=== PATIENT | male | born 1975 | race Caucasian/White ===

== ENCOUNTER → 2022-09-07 15:21 | Outpatient (BNVA) | payer OTHER, SELFPAY | PROVIDERS: Visit Provider Orthopaedic Surgery | DX: M25.562 Pain in left knee (principal) | CPT/HCPCS: 99203 ==

== ENCOUNTER 2022-09-24 15:07 | Outpatient (CLI) | payer OTHER, SELFPAY ==
--- NOTE | 2022-09-24 15:15 | MR_ITS ---
WS: [id number] MRI LEFT KNEE HISTORY: pain COMPARISON: Radiograph 08/19/2022 Anterior cruciate ligament: Intact. Posterior cruciate ligament: Intact. Medial collateral ligament: Intact. Posterior lateral corner structures: Intact. Medial menisci: Focal blunting involving the free edge posterior horn consistent with a focal tear. T his is probably a radial tear. There is additional signal in the peripheral third of the posterior me niscus. Favor this could be an additional tear extending along the posterior inferior surface of the meniscus to the fascicle. Anterior horn is normal. Lateral meniscus: Intact. Normal signal, size and shape. Extensor mechanism: Distal quadriceps tendon and patellar tendons are intact. Fluid and soft tissue: Small suprapatellar joint effusion. There is a small Deluna's cyst. Small amoun t of edema along the medial head of the gastrocnemius. There is mild edema surrounding the knee. Osseous and articular structures: Patellofemoral compartment: Mild thinning of the cartilage. No full-thickness cartilage defects and n o marrow edema. Medial compartment: Moderate narrowing of the medial compartment. Thinning of the cartilage along the weightbearing surface of the femoral condyle and tibial plateau. There is a very small amount of nancy ctive marrow edema tibial plateau. Lateral compartment: Mild narrowing. Very minimal fissuring of the cartilage. No marrow edema. MR/MR knee LT wo con* [id number] IMPRESSION: 1. Focal blunting posterior horn medial meniscus involving the free edge. Susp icious for tear. 2. Additional signal abnormality in the peripheral third posterior horn medial meniscus. Abnormal signal extends along the posterior inferior meniscus to the fascicle. 3. Small Deluna's cyst and small joint effusion. 4. Moderate medial compartment with thinning and fissuring of cartilage. 5. Very small amount of marrow edema involving the medial tibial plateau.
== END 2022-09-24 15:08 | disposition home or self-care (01) ==
PROVIDERS: PCP Orthopaedic Surgery; Visit Provider Orthopaedic Surgery
DX: M23.322 Other meniscus derangements, posterior horn of medial meniscus, left knee (principal); M71.22 Synovial cyst of popliteal space [Baker], left knee; M25.462 Effusion, left knee; M94.9 Disorder of cartilage, unspecified
CPT/HCPCS: 73721

== ENCOUNTER → 2022-10-04 10:37 | Outpatient (BNVA) | payer OTHER, SELFPAY | PROVIDERS: PCP Orthopaedic Surgery; Visit Provider Specialist | DX: S89.92XA Unspecified injury of left lower leg, initial encounter (principal); X58.XXXA Exposure to other specified factors, initial encounter | CPT/HCPCS: 73560; 73565; 99204 ==

== ENCOUNTER 2022-10-26 13:38 | Outpatient (CLI) | payer OTHER, SELFPAY ==
--- NOTE | 2022-10-26 13:43 | MR_ITS ---
WS: [id number] MRI LEFT KNEE NONCONTRAST TECHNIQUE: Axial PD, coronal PD fat sat, sagittal T1 and sagittal PD ACL images. Post intra-articular gadolinium images with fat saturation technique CLINICAL INFORMATION: knee injury COMPARISON: MRI September 24, 2022 FINDINGS: Distal quadriceps and patella tendons are intact. Hypertrophic patella. Normal ACL and PCL. Tiny amou nt of edema in the medial tibial plateau unchanged from previous. Normal medial and lateral collatera l ligaments. Normal popliteus. Moderate chondromalacia involving the medial joint compartment. Mild p eripheral extrusion of the medial meniscus. Again seen is the small undersurface tear involving the posterior horn medial meniscus with a tiny te ar extending to the articular surface. Small amount of peripheral meniscal herniation about the tibia l plateau. Normal lateral meniscus. Moderate chondromalacia patella. Normal medial and lateral patellar retinaculum. Small Lobulated popl iteal cyst measuring 2.9 x 1.4 x 6.0 cm AP by transverse by craniocaudal MR/MR knee LT wo/w con [id number] IMPRESSION: 1. Normal ACL and PCL. 2. Small tear involving the posterior horn medial meniscus extending to the ar ticular surface with peripheral meniscal herniation with slight inferior migrat ion. 3. Moderate chondromalacia patella. 4. Moderate chondromalacia involving the medial joint compartment with small a mount of edema involving the medial tibial plateau. 5. Small lobulated popliteal cyst as described above. Outbridge grading:
--- NOTE | 2022-10-26 13:45 | IR_ITS ---
WS: [id number] LEFT KNEE ARTHROGRAM Fluoroscopic guided left knee arthrogram. CLINICAL INFORMATION: knee injury COMPARISON: None. TECHNIQUE: The procedure including risks, benefits, and complications were discussed with the patient , who agreed to proceed. Timeout was performed. Using sterile technique, the patient was prepped and draped in the usual sterile fashion. After 1% lidocaine injection using fluoroscopic guidance, a 22-g auge spinal needle was advanced into the left patellofemoral compartment. Subsequently 40 cc of a mix ture containing 30 cc normal saline, 10 cc Omnipaque 240, and 0.2 cc gadolinium was administered. No immediate complications. FLUOROSCOPY TIME: 1min [id number] # of spot films: 2 IR/[place] [id number] IMPRESSION: Uncomplicated left knee fluoroscopic guided arthrogram. MRI to follow.
== END 2022-10-26 13:39 | disposition home or self-care (01) ==
PROVIDERS: PCP Emergency Medicine Emergency Medical Services; Visit Provider Specialist
DX: S83.242A Other tear of medial meniscus, current injury, left knee, initial encounter (principal); X58.XXXA Exposure to other specified factors, initial encounter; M22.42 Chondromalacia patellae, left knee
CPT/HCPCS: 27369; 73723; 77002

== ENCOUNTER → 2022-11-10 14:54 | Outpatient (BNVA) | payer OTHER, SELFPAY | PROVIDERS: PCP Emergency Medicine Emergency Medical Services; Referring Provider Emergency Medicine Emergency Medical Services; Visit Provider Specialist | DX: M25.521 Pain in right elbow (principal); M25.522 Pain in left elbow; M25.562 Pain in left knee | CPT/HCPCS: 73080; 99214 ==

== ENCOUNTER 2022-11-16 15:31 | Outpatient (RCR) | payer OTHER, SELFPAY | END 2022-11-25 23:59 | disposition home or self-care (01) | LOC: SOT 15:31 | PROVIDERS: PCP Emergency Medicine Emergency Medical Services; Visit Provider Specialist | DX: M25.529 Pain in unspecified elbow (principal) | CPT/HCPCS: 97110; 97165; 97530 ==

== ENCOUNTER 2022-11-19 11:27 | Outpatient (RCR) | payer OTHER, SELFPAY | END 2022-11-25 23:59 | disposition home or self-care (01) | LOC: SPT 11:27 | PROVIDERS: PCP Emergency Medicine Emergency Medical Services; Visit Provider Specialist | DX: M25.562 Pain in left knee (principal) | CPT/HCPCS: 97110; 97161 ==

== ENCOUNTER 2022-11-26 06:00 | Outpatient (RCR) | payer OTHER, SELFPAY | END 2022-12-25 23:59 | disposition home or self-care (01) | LOC: SOT 06:00 | PROVIDERS: PCP Emergency Medicine Emergency Medical Services; Visit Provider Specialist | DX: M25.522 Pain in left elbow (principal); M25.521 Pain in right elbow | CPT/HCPCS: 97110; G0283 ==

== ENCOUNTER 2022-11-26 06:00 | Outpatient (RCR) | payer OTHER, SELFPAY | END 2022-12-25 23:59 | disposition home or self-care (01) | LOC: SPT 06:00 | PROVIDERS: PCP Emergency Medicine Emergency Medical Services; Visit Provider Specialist | DX: M25.562 Pain in left knee (principal) | CPT/HCPCS: 97110 ==

== ENCOUNTER 2022-12-07 13:59 | Outpatient (CLI) | payer OTHER, SELFPAY ==
--- NOTE | 2022-12-07 14:30 | MR_ITS ---
WS: [email or web address] EXAMINATION: MR elbow RT wo con* [id number] ORDER DATE: 12/07/2022 2:28 PM COMPARISON: None. HISTORY: right elbow pain CONTRAST: None.None. TECHNIQUE: Axial T1, axial T2 fat sat, coronal T1, coronal proton density fat sat, coronal STIR, sagi ttal proton density fat sat, and axial fat sat 3D performed. After contrast, axial T1 fat sat, coron al T1 fat sat, and sagittal T1 fat sat were performed. FINDINGS: Prominent dorsal olecranon spurring. Fluid and soft tissue edema along the olecranon spur with lucenc y at the base of the olecranon spur consistent with a small nondisplaced fracture. Fluid and edema ex tends to the dorsal triceps and triceps insertion. Normal medial and lateral collateral ligaments. Normal Normal flexor and extensor tendon complexes. Normal medial and lateral epicondyles. Radial head and neck are normal in appearance. Normal capitell um and trochlea. Normal coronoid process. Tiny amount of degenerative subchondral cystic change invol ving the capitellum. No significant edema. Small amount of fluid and signal normality involving the c ommon extensor tendon origin compatible with Extensor tendinopathy. IMPRESSION: 1. Prominent dorsal olecranon spurring as seen on the prior radiograph with associated fracture at t he base. Associated fluid and edema involving the surrounding soft tissues extending into the distal triceps tendon origin. 2. No drainable fluid collection or abscess. 3. Extensor tendinopathy involving the common extensor tendon origin with associated fluid and edema . Recommend correlation with lateral elbow pain. 4. Medial and lateral collateral ligaments appear intact. 5. No other acute findings.
== END 2022-12-07 14:00 | disposition home or self-care (01) ==
LOC: RAD 14:01
PROVIDERS: PCP Emergency Medicine Emergency Medical Services; Visit Provider Specialist
DX: M77.8 Other enthesopathies, not elsewhere classified (principal); M25.421 Effusion, right elbow; M25.521 Pain in right elbow
CPT/HCPCS: 73221

== ENCOUNTER → 2023-01-03 15:13 | Outpatient (BNVA) | payer OTHER, SELFPAY | PROVIDERS: PCP Emergency Medicine Emergency Medical Services; Visit Provider Specialist | DX: S52.021D Displaced fracture of olecranon process without intraarticular extension of right ulna, subsequent encounter for closed fracture with routine healing (principal); X58.XXXD Exposure to other specified factors, subsequent encounter | CPT/HCPCS: 99214 ==

== ENCOUNTER 2023-04-20 11:33 | Outpatient (RCR) | payer OTHER, SELFPAY | END 2023-04-27 23:59 | disposition home or self-care (01) | LOC: SPT 11:33 | PROVIDERS: PCP Emergency Medicine Emergency Medical Services; Visit Provider Emergency Medicine Emergency Medical Services | DX: M25.512 Pain in left shoulder (principal) | CPT/HCPCS: 97110; 97161 ==

== ENCOUNTER 2023-04-28 06:00 | Outpatient (RCR) | payer OTHER, SELFPAY | END 2023-05-26 23:59 | disposition home or self-care (01) | LOC: SPT 06:00 | PROVIDERS: PCP Emergency Medicine Emergency Medical Services; Visit Provider Emergency Medicine Emergency Medical Services | DX: M25.511 Pain in right shoulder (principal) | CPT/HCPCS: 97110; 97530; G0283 ==

== ENCOUNTER 2023-05-27 06:00 | Outpatient (RCR) | payer OTHER, SELFPAY | END 2023-06-26 23:59 | disposition home or self-care (01) | LOC: SPT 06:00 | PROVIDERS: PCP Emergency Medicine Emergency Medical Services; Visit Provider Emergency Medicine Emergency Medical Services | DX: M25.511 Pain in right shoulder (principal) | CPT/HCPCS: 97110 ==

== ENCOUNTER 2023-06-27 06:00 | Outpatient (RCR) | payer OTHER, SELFPAY | END 2023-07-26 23:59 | disposition home or self-care (01) | LOC: SPT 06:00 | PROVIDERS: PCP Emergency Medicine Emergency Medical Services; Visit Provider Emergency Medicine Emergency Medical Services | DX: M25.511 Pain in right shoulder (principal) | CPT/HCPCS: 97110 ==

== ENCOUNTER → 2023-12-14 14:16 | Outpatient (BNVA) | payer OTHER, SELFPAY | PROVIDERS: PCP Emergency Medicine Emergency Medical Services; Visit Provider Surgery | DX: Z12.11 Encounter for screening for malignant neoplasm of colon (principal) | CPT/HCPCS: 99203 ==

== ENCOUNTER 2024-01-12 09:51 | Day surgery (SDC) | payer OTHER, SELFPAY ==
[2024-01-12 10:02] VITALS: BP 131/80; PULSE 68; RESP 16; TEMP 36.2; O2SAT 97; BMI 27.8
[2024-01-12] MEDS: sodium chloride 0.9% 1,000 ML 30 ML IV (10:09)
--- NOTE | 2024-01-12 10:28 | P.HPUD_ITS ---
Surgery/Procedure H&P Update DATE OF PROCEDURE: January 12, 2024 DATE H&P PERFORMED: 12/14/23 H&P UPDATE INFORMATION: I have reviewed H&P completed within last 30 days, I have examined patient prior to procedure, No changes to prior documentation and H&P is in [facility] EMR on date indicated PLANNED PROCEDURE: Operation Date: 01/12/24 11:15 Proposed Procedures p Colonoscopy- 54541, G0121 , Z12.11(Not Applicable) - Prashant Silverio MD
--- NOTE | 2024-01-12 10:36 | ANES.PREANE2 ---
Pre-Anesthetic Assessment Height/Weight: Height 1.8 m Weight 90.718 kg Temp Pulse Resp BP Pulse Ox O2 Del Method 97.2 F L 68 16 131/80 97 Room Air 01/12/24 10:02 01/12/24 10:02 01/12/24 10:02 01/12/24 10:02 01/12/24 10:02 01/12/24 10:02 Preop Diagnosis: screening Operation Date: 01/12/24 11:15 Proposed Procedures p Colonoscopy- 61347, G0121 , Z12.11(Not Applicable) - Prashant Silveiro MD Familial anesthetic complications: none Was Beta Lesly taken within 24 hours: N/A Was Clonidine taken within 24 hours: N/A Last intake: Intake Last Liquid Date 01/11/24 Last Liquid Time 22:00 Last Solid Date 01/10/24 Last Solid Time 21:00 Social Alcohol and No tobacco Wine with dinner Exam alert, oriented x 3, clear to auscultation bilaterally and regular rate & rhythm Airway Submandibular: within normal limits Cervical ROM: within normal limits Mallampati: Class II Dentition: full History/ROS No significant history except as noted Pulmonary None reported CV/HEM None reported None reported Hepatic None reported Metabolic None reported Musc/skel None reported Neuropsych None reported Anesthetic Plan ASA status: 1 Anesthesia: MAC Risk of > 500 ml blood loss (7ml/kg in children): No Medications/Allergies Home Medications Medication Instructions Recorded Confirmed Last Taken Type No Known Home Medications 09/07/22 01/11/24 Unknown History Allergies Allergy/AdvReac Type Severity Reaction Status Date / Time No Known Allergies Allergy Verified 12/14/23 14:26 Current Medications Generic Name Dose Route Start Last Admin Trade Name Freq PRN Reason Stop Dose Admin Sodium Chloride 1,000 mls @ 30 mls/hr 01/12/24 10:00 01/12/24 10:09 Sodium Chloride 0.9% IV 30 mls/hr .Q24H RAS Administration PFSH Anesthesia Social History Smoking and tobacco/nicotine status: never used tobacco/nicotine Alcohol intake: never Substance/Drug Use: never Data Anesthesia Cardiac Studies: No Data to Display
[2024-01-12 11:49] VITALS: BP 110/67; PULSE 76; RESP 16; TEMP 36.3; O2SAT 93
[2024-01-12 11:59] VITALS: BP 107/73; PULSE 71; RESP 16; O2SAT 94
[2024-01-12 12:09] VITALS: BP 128/78; PULSE 69; RESP 16; O2SAT 92
--- NOTE | 2024-01-12 12:32 | ANE.PACU2 ---
Inpatient post-anesthesia follow up: Airway intact: Yes Vital signs: Temperature 97.4 F Pulse Rate 69 Respiratory Rate 16 Blood Pressure 128/78 Pulse Oximetry 92 Oxygen Delivery Me thod Room Air Oxygen Flow Rate Fraction of Inspir ed Oxygen Hydration adequate: Yes Nausea and vomiting: No Pain level: 1 Mental status: Baseline
--- NOTE | 2024-01-12 12:32 | SUR.PHASEII ---
Pt contacted [employer] for a ride home. Pt refused to be taken out in wheelchair stating he will walk. This nurse accompanied pt to OPS waiting room. Pt states he will wait outside for his ride.
== END 2024-01-12 12:35 | disposition home or self-care (01) ==
PROVIDERS: PCP Family Medicine; Visit Provider Surgery
PROC: 0DJD8ZZ Inspection of Lower Intestinal Tract, Via Natural or Artificial Opening Endoscopic (ICD-10-PCS; CPT 45378; principal; 2024-01-12 11:15)
DX: Z12.11 Encounter for screening for malignant neoplasm of colon (principal); K63.5 Polyp of colon; K62.1 Rectal polyp
CPT/HCPCS: 45380; 88305; J2704; J7030

== ENCOUNTER → 2024-02-01 15:36 | Outpatient (BNVA) | payer OTHER, SELFPAY | PROVIDERS: PCP Family Medicine; Visit Provider Surgery | DX: Z09 Encounter for follow-up examination after completed treatment for conditions other than malignant neoplasm (principal) | CPT/HCPCS: 99213 ==

== ENCOUNTER → 2025-03-15 11:06 | Outpatient (BNVA) | payer OTHER, SELFPAY | PROVIDERS: PCP Family Medicine; Visit Provider Dermatology | DX: L01.01 Non-bullous impetigo (principal); L21.8 Other seborrheic dermatitis; L71.9 Rosacea, unspecified; D23.39 Other benign neoplasm of skin of other parts of face | CPT/HCPCS: 99204 ==